=== PATIENT | male | born 1975 | race African-American/Black ===

== ENCOUNTER 2017-07-17 20:13 | Emergency (ER) | payer OTHER ==
[~2017-07-17] VITALS: Ht 185.4 cm; Wt 68.2 kg
[~2017-07-17 20:13] MED LIST: NOCURR
[2017-07-17 20:18] VITALS: BP 138/89
[2017-07-17] MEDS ORDERED: ACETAMINOPHEN/CODEINE 300-30 MG TABLET PO ONE (22:15)
== END 2017-07-17 23:23 | disposition home or self-care (01) ==
LOC: EMS 20:19
DX: J40 Bronchitis, not specified as acute or chronic (principal); F17.210 Nicotine dependence, cigarettes, uncomplicated
CPT/HCPCS: 71020; 99284

== ENCOUNTER 2017-09-13 07:18 | Emergency (ER) | payer OTHER ==
[~2017-09-13] VITALS: Ht 185.4 cm; Wt 68.2 kg
[2017-09-13 07:44] VITALS: BP 139/78
[2017-09-13] MEDS ORDERED: IBUPROFEN 800 MG TABLET PO ONE (07:45)
[2017-09-13] MEDS ORDERED: CLINDAMYCIN HCL 150 MG CAPSULE PO ONE (07:45)
== END 2017-09-13 07:59 | disposition home or self-care (01) ==
LOC: EMS 07:20
DX: S02.5XXA Fracture of tooth (traumatic), initial encounter for closed fracture (principal); F17.210 Nicotine dependence, cigarettes, uncomplicated; F12.90 Cannabis use, unspecified, uncomplicated; X58.XXXA Exposure to other specified factors, initial encounter; Y93.89 Activity, other specified; Y92.89 Other specified places as the place of occurrence of the external cause; Y99.8 Other external cause status
CPT/HCPCS: 99283

== ENCOUNTER 2017-12-27 05:49 | Emergency (ER) | payer OTHER ==
[~2017-12-27] VITALS: Ht 185.4 cm; Wt 68.2 kg
[2017-12-27] MEDS: IBUPROFEN 600 MG TABLET PO ONE (06:51)
[2017-12-27 06:52] VITALS: BP 119/72
== END 2017-12-27 07:43 | disposition home or self-care (01) ==
LOC: EMS 05:51
DX: S93.492A Sprain of other ligament of left ankle, initial encounter (principal); F17.210 Nicotine dependence, cigarettes, uncomplicated; Z71.6 Tobacco abuse counseling; W22.8XXA Striking against or struck by other objects, initial encounter; Y93.89 Activity, other specified; Y92.89 Other specified places as the place of occurrence of the external cause; Y99.8 Other external cause status
CPT/HCPCS: 99284; 99406

== ENCOUNTER 2018-06-11 02:25 | Emergency (ER) | payer SELFPAY ==
[~2018-06-11] VITALS: Ht 185.4 cm; Wt 68.2 kg
[2018-06-11 04:10] VITALS: BP 121/73
[2018-06-11] MEDS ORDERED: ACETAMINOPHEN 500 MG TABLET PO ONE (04:15)
[2018-06-11] MEDS ORDERED: PENICILLIN V POTASSIUM 500 MG TABLET PO ONE (04:15)
[2018-06-11] MEDS ORDERED: IBUPROFEN 600 MG TABLET PO ONE (04:15)
== END 2018-06-11 04:22 | disposition home or self-care (01) ==
LOC: EMS 02:26
DX: K04.7 Periapical abscess without sinus (principal); F17.210 Nicotine dependence, cigarettes, uncomplicated; F12.90 Cannabis use, unspecified, uncomplicated
CPT/HCPCS: 99284; 99406

== ENCOUNTER 2019-08-04 13:27 | Emergency (ER) | payer SELFPAY ==
[~2019-08-04] VITALS: Ht 185.4 cm; Wt 68.2 kg
[2019-08-04] MEDS ORDERED: IPRATROPIUM BROMIDE 0.5 MG/2.5 ML NEB SOLUTION NEB ONE (15:15)
[2019-08-04] MEDS ORDERED: ALBUTEROL SULFATE 2.5 MG/0.5 ML NEB SOLUTION NEB ONE (15:15)
[2019-08-04] MEDS ORDERED: PredniSONE 20 MG TABLET PO ONE (15:15)
[2019-08-04 16:23] VITALS: BP 120/68
== END 2019-08-04 16:25 | disposition home or self-care (01) ==
LOC: EMS 13:32
DX: J44.1 Chronic obstructive pulmonary disease with (acute) exacerbation (principal); F12.90 Cannabis use, unspecified, uncomplicated; F17.210 Nicotine dependence, cigarettes, uncomplicated
CPT/HCPCS: 71046; 94640; 99283; J7512; 94060

== ENCOUNTER 2020-03-29 00:13 | Emergency (ER) | payer OTHER ==
[~2020-03-29] VITALS: Ht 185.4 cm; Wt 68.2 kg
[2020-03-29 00:14] VITALS: BP 120/69
== END 2020-03-29 01:45 | disposition left against medical advice (07) ==
LOC: EMS 00:14
DX: M79.644 Pain in right finger(s) (principal); Z53.21 Procedure and treatment not carried out due to patient leaving prior to being seen by health care provider

== ENCOUNTER 2020-05-23 08:16 | Emergency (ER) | payer OTHER ==
[~2020-05-23] VITALS: Ht 185.4 cm; Wt 68.2 kg
[2020-05-23] MEDS ORDERED: IBUPROFEN 600 MG TABLET PO ONE (09:00)
[2020-05-23 10:19] VITALS: BP 98/57
== END 2020-05-23 10:37 | disposition home or self-care (01) ==
LOC: EMS 08:25
DX: M13.841 Other specified arthritis, right hand (principal); F17.210 Nicotine dependence, cigarettes, uncomplicated; F12.90 Cannabis use, unspecified, uncomplicated

== ENCOUNTER 2022-06-18 12:15 | Emergency (ER) | payer OTHER ==
[~2022-06-18] VITALS: Ht 185.4 cm; Wt 68.2 kg
[2022-06-18 12:33] VITALS: BP 117/76
== END 2022-06-18 14:58 | disposition left against medical advice (07) ==
LOC: EMS 12:16
DX: Z53.21 Procedure and treatment not carried out due to patient leaving prior to being seen by health care provider (principal)